=== PATIENT | female | born 1980 | race Asian ===

== ENCOUNTER 2019-06-05 17:56 | Emergency (ER) | payer OTHER ==
[2019-06-05 18:27] LABS: BASOPHILS % (AUTO) 0.4 %; EOSINOPHILS # (AUTO) 0.1 10^3/uL (0.0-0.7); EOSINOPHILS % (AUTO) 0.6 %; HGB - HEMOGLOBIN 12.5 g/dL (12.0-16.0); LYMPHOCYTES # (AUTO) 1.7 10^3/uL (1.5-3.5); LYMPHOCYTES % (AUTO) 20.6 %; MEAN CORPUSCULAR HEMOGLOBIN 30.3 pg (27.0-31.0); MEAN CORPUSCULAR HGB CONC 33.6 g/dL (32.0-36.0); MEAN CORPUSCULAR VOLUME 90.3 fL (81.0-99.0); MEAN PLATELET VOLUME 9.8 fL (7.9-10.8); MONOCYTES # (AUTO) 0.5 10^3/uL (0.0-1.0); MONOCYTES % (AUTO) 6.4 %; NEUTROPHILS # (AUTO) 5.9 10^3/uL (1.5-6.6); NEUTROPHILS % (AUTO) 71.6 %; PLT - PLATELET COUNT 263 10^3/uL (130-450); RED BLOOD COUNT 4.12 10^6/uL (4.20-5.40); RED CELL DISTRIBUTION WIDTH 12.6 % (12.0-15.0); WHITE BLOOD COUNT 8.3 x10^3/uL (4.8-10.8)
[2019-06-05 18:28] LABS: BILIRUBIN,URINE NEGATIVE (NEGATIVE); GLUCOSE, URINE (UA) NEGATIVE (NEGATIVE); KETONES,URINE (UA) NEGATIVE (NEGATIVE); LEUKOCYTE ESTERASE, URINE NEGATIVE (NEGATIVE); NITRITE,URINE NEGATIVE (NEGATIVE); OCCULT BLOOD,URINE LARGE (NEGATIVE); PROTEIN,URINE NEGATIVE (NEGATIVE); UROBILINOGEN,URINE 0.2 (NORMAL) E.U./dL (NORMAL)
[2019-06-05 18:31] LABS: CLARITY,URINE CLEAR (CLEAR)
[2019-06-05 18:39] LABS: BACTERIA,URINE Rare /HPF (None Seen); SQUAMOUS EPITHELIAL CELL,UR FEW Squamous (<= Few)
[2019-06-05 18:44] LABS: ALBUMIN 3.8 g/dL (3.2-5.5); BILIRUBIN,TOTAL 0.4 mg/dL (0.2-1.0); CALCIUM 8.8 mg/dL (8.5-10.3); CREATININE 0.5 mg/dL (0.4-1.0); TOTAL PROTEIN 7.5 g/dL (6.7-8.2)
--- NOTE | 2019-06-05 18:49 | ED Physician Documentation ---
History of Present Illness - Stated complaint Stated Complaint: VAGINAL BLEEDING - Chief complaint Chief Complaint: General - History obtained from History obtained from: Patient - History of Present Illness Timing: How many days ago (2) Pain level max: 0 Pain level now: 0 - Additonal information Additional information: 39-year-old female, 1 para 0 approximately 11 weeks states that she had vaginal bleeding since yesterday. Spotting. Had silver nitrate applied to a vaginal polyp yesterday. No cramping. No other vaginal fluid leakage. Nothing makes it better or worse. 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 : None HEENT: None Psych: None Musculoskeletal: None Derm: None - Past Surgical History Past Surgical History: No - Allergies Allergies/Adverse Reactions: Allergies Allergy/AdvReac Type Severity Reaction Status Date / Time No Known Drug Allergies Allergy Verified 06/05/19 18:09 - Social History Does the pt smoke?: No Smoking Status: Never smoker Does the pt drink ETOH?: No Does the pt have substance abuse?: No - Immunizations Immunizations are current?: Yes - POLST Patient has POLST: No PD ED PE NORMAL - Vitals Vital signs reviewed: Yes - General General: Alert and oriented X 3, No acute distress - HEENT HEENT: Moist mucous membranes - Neck Neck: Supple, no meningeal sign - Cardiac Cardiac: RRR, Strong equal pulses - Respiratory Respiratory: No respiratory distress, Clear bilaterally - Abdomen Abdomen: Soft, Non tender, Non distended - Derm Derm: Warm and dry - Extremities Extremities: No edema - Neuro Neuro: Alert and oriented X 3 - Psych Psych: Normal mood, Normal affect Results - Vitals Vitals: Vital Signs - 24 hr 06/05/19 06/05/19 18:09 19:37 Temperature 36.6 C 36.6 C Heart Rate 84 74 Respiratory 15 18 Rate Blood Pressure 128/53 L 113/63 O2 Saturation 98 100 Oxygen O2 Source Room air - Labs Labs: Laboratory Tests 06/05/19 06/05/19 06/05/19 18:20 18:24 18:24 WBC 8.3 RBC 4.12 L Hgb 12.5 Hct 37.2 MCV 90.3 MCH 30.3 MCHC 33.6 RDW 12.6 Plt Count 263 MPV 9.8 Neut # (Auto) 5.9 Lymph # (Auto) 1.7 Rush # (Auto) 0.5 Eos # (Auto) 0.1 Baso # (Auto) 0.0 Absolute Nucleated RBC 0.00 Nucleated RBC % 0.0 Sodium Potassium Chloride Carbon Dioxide Anion Gap BUN Creatinine Estimated GFR (MDRD) Glucose Calcium Total Bilirubin AST ALT Alkaline Phosphatase Total Protein Albumin Globulin Albumin/Globulin Ratio Lipase HCG, Quant Urine Color YELLOW Urine Clarity CLEAR Urine pH 6.0 Ur Specific [place] <=1.005 Urine Protein NEGATIVE Urine Glucose (UA) NEGATIVE Urine Ketones NEGATIVE Urine Occult Blood LARGE H Urine Nitrite NEGATIVE Urine Bilirubin NEGATIVE Urine Urobilinogen 0.2 (NORMAL) Ur Leukocyte Esterase NEGATIVE Urine RBC 6-10 H Urine WBC 0-3 Ur Squamous Epith Cells FEW Squamous Urine Bacteria Rare Ur Microscopic Review INDICATED Urine Culture Comments NOT INDICATED Blood Type O POSITIVE 06/05/19 06/05/19 18:24 18:24 WBC RBC Hgb Hct MCV MCH MCHC RDW Plt Count MPV Neut # (Auto) Lymph # (Auto) Rush # (Auto) Eos # (Auto) Baso # (Auto) Absolute Nucleated RBC Nucleated RBC % Sodium 138 Potassium 3.4 L Chloride 106 Carbon Dioxide 23 Anion Gap 9.0 BUN 7 Creatinine 0.5 Estimated GFR (MDRD) 137 Glucose 109 H Calcium 8.8 Total Bilirubin 0.4 AST 23 ALT 37 Alkaline Phosphatase 43 Total Protein 7.5 Albumin 3.8 Globulin 3.7 Albumin/Globulin Ratio 1.0 Lipase 56 H HCG, Quant 841380.00 Urine Color Urine Clarity Urine pH Ur Specific [place] Urine Protein Urine Glucose (UA) Urine Ketones Urine Occult Blood Urine Nitrite Urine Bilirubin Urine Urobilinogen Ur Leukocyte Esterase Urine RBC Urine WBC Ur Squamous Epith Cells Urine Bacteria Ur Microscopic Review Urine Culture Comments Blood Type PD MEDICAL DECISION MAKING - ED course Complexity details: reviewed results, re-evaluated patient, considered differential, d/w patient, d/w family ED course: Bedside ultrasound performed. heart rate of 156 bpm. Positive movement. Likely the bleeding is from the silver nitrate that was applied to the vaginal polyp yesterday by her OB. No acute findings on ultrasound or laboratory testing. We will have her follow-up with her doctor for further care. Patient counseled regarding signs and symptoms for which I believe and urgent re- evaluation would be necessary. Patient with good understanding of and agreement to plan and is comfortable going home at this time This document was made in part using voice recognition software. While efforts are made to proofread this document, sound alike and grammatical errors may occur. Departure - Departure Disposition: 01 Home, Self Care Clinical Impression: Vaginal bleeding affecting early Condition: Good Instructions: ED Miscarriage Poss, ED Preg Established Normal Sxs Follow-Up: Justo Brooks MD [Primary Care Provider] - Comments: Follow-up with your doctor for further care. Return if you worsen. Your laboratory testing and ultrasound are normal tonight. Your hCG is 191,000 which is normal for this stage of . The bleeding is possibly from the silver nitrate that was applied yesterday. Discharge Date/Time: 06/05/19 19:39
[2019-06-05 19:38] VITALS: BP 113/63
== END 2019-06-05 19:39 | disposition home or self-care (01) ==
LOC: ED 17:56
DX: O20.9 Hemorrhage in early pregnancy, unspecified (principal)
CPT/HCPCS: 36415; 80053; 81001; 81003; 83690; 84702; 85025; 86900; 86901; 87086; 99283; 99284